=== PATIENT | male | born 1940 | race African-American/Black ===

== ENCOUNTER 2022-03-16 12:18 | Emergency (ER) | payer OTHER ==
[~2022-03-16] VITALS: Ht 182.9 cm; Wt 95.0 kg
[2022-03-16] MEDS ORDERED: SODIUM CHLORIDE 0.9% 1,000 ML IV ONE (12:30)
[2022-03-16 13:00] LABS: BASOPHILS % 0.6 % (0.0-2.0); EOSINOPHILS % 1.1 % (0.0-5.0); HEMATOCRIT. 37.8 % (42.0-52.0); HEMOGLOBIN. 12.8 g/dL (14.0-18.0); LYMPHOCYTES % 29.7 % (20.0-50.0); MEAN CORPUSCULAR HEMOGLOBIN 28.4 pg (28.0-32.0); MEAN CORPUSCULAR VOLUME 84.3 fL (80.0-94.0); MEAN PLATELET VOLUME 8.4 fl (7.4-10.4); MONOCYTES % 10.6 % (2.0-8.0); PLATELET 127 x1000/uL (130-400); RED BLOOD CELL COUNT 4.49 mill/uL (4.7-6.1); RED CELL DISTRIBUTION WIDTH 12.4 % (11.6-14.6)
[2022-03-16 13:15] LABS: CHLORIDE 107 mEq/L (98-107)
[2022-03-16 13:46] VITALS: BP 130/67
== END 2022-03-16 15:07 | disposition home or self-care (01) ==
LOC: ER 12:44
DX: R55 Syncope and collapse (principal); E86.0 Dehydration; N28.9 Disorder of kidney and ureter, unspecified; E78.00 Pure hypercholesterolemia, unspecified; I25.2 Old myocardial infarction; I10 Essential (primary) hypertension
CPT/HCPCS: 36415; 71045; 80053; 83690; 84484; 85025; 93005; 96360; 99285; J7030

== ENCOUNTER 2024-12-24 07:46 | Emergency (ER) | payer OTHER ==
[~2024-12-24] VITALS: Ht 180.3 cm; Wt 82.0 kg
[2024-12-24 07:47] VITALS: O2SAT 97
[2024-12-24 08:36] LABS: BASOPHILS % 0.8 % (0.0-2.0); EOSINOPHILS % 4.5 % (0.0-5.0); HEMATOCRIT. 43.1 % (42.0-52.0); HEMOGLOBIN. 14.2 g/dL (14.0-18.0); LYMPHOCYTES % 22.9 % (20.0-50.0); MEAN PLATELET VOLUME 7.6 fl (7.4-10.4); MONOCYTES % 7.2 % (2.0-8.0); NEUTROPHILS % 64.6 % (40.0-76.0); PLATELET 108 x1000/uL (130-400); RED BLOOD CELL COUNT 5.07 mill/uL (4.7-6.1); RED CELL DISTRIBUTION WIDTH 12.6 % (11.6-14.6)
[2024-12-24 08:48] LABS: CREATININE 2.2 mg/dL (0.6-1.3)
[2024-12-24 08:49] LABS: ETHANOL BLOOD < 10 mg/dL (<10); UREA NITROGEN BLOOD 13 mg/dL (9-23)
[2024-12-24] MEDS ORDERED: KEPP250 PO (11:33)
[2024-12-24 12:03] VITALS: BP 172/85; PULSE 68; RESP 12; TEMP 37; O2SAT 97
[2024-12-24] MEDS: LOSARTAN 50 MG TABLET PO ONE (12:06)
== END 2024-12-24 12:20 | disposition home or self-care (01) ==
LOC: ER 07:56 → CMPBEDREQ 12-25 07:38
DX: R56.9 Unspecified convulsions (principal); E78.00 Pure hypercholesterolemia, unspecified; I25.2 Old myocardial infarction; I10 Essential (primary) hypertension; K11.7 Disturbances of salivary secretion; Z79.899 Other long term (current) drug therapy
CPT/HCPCS: 36415; 80048; 80320; 85025; 93005; 99284; G0480

== ENCOUNTER 2025-03-05 16:37 | Emergency (ER) | payer OTHER ==
[~2025-03-05] VITALS: Ht 172.7 cm; Wt 86.0 kg
[~2025-03-05 16:37] MED LIST: KEPP250 PO
[2025-03-05 16:40] VITALS: O2SAT 98
[2025-03-05 18:10] LABS: BASOPHILS % 0.8 % (0.0-2.0); EOSINOPHILS % 3.5 % (0.0-5.0); HEMATOCRIT. 39.7 % (42.0-52.0); HEMOGLOBIN. 13.4 g/dL (14.0-18.0); LYMPHOCYTES % 23.2 % (20.0-50.0); MEAN PLATELET VOLUME 8.2 fl (7.4-10.4); MONOCYTES % 8.5 % (2.0-8.0); NEUTROPHILS % 64.0 % (40.0-76.0); PLATELET 108 x1000/uL (130-400); RED BLOOD CELL COUNT 4.72 mill/uL (4.7-6.1); RED CELL DISTRIBUTION WIDTH 12.5 % (11.6-14.6)
[2025-03-05 18:26] LABS: CREATININE 2.3 mg/dL (0.6-1.3); TROPONIN I HIGH SENSITIVITY 17 ng/L (3.0-53); UREA NITROGEN BLOOD 21 mg/dL (9-23)
[2025-03-05 18:28] LABS: ASPARTATE AMINOTRANSFERASE 14 IU/L (<34); BILIRUBIN DIRECT 0.3 mg/dL (<=3.0)
[2025-03-05 18:29] LABS: BILIRUBIN TOTAL 0.9 mg/dL (0.1-1.0); PROTEIN TOTAL 6.2 g/dL (6.0-8.3)
[2025-03-05 18:37] LABS: INR 1.0
[2025-03-05] MEDS: LEVETIRACETAM 500MG PREMIX 100 ML IV ONE (19:51)
[2025-03-05] MEDS: SODIUM CHLORIDE 0.9% 500 ML IV ONE (19:51)
[2025-03-05 21:22] LABS: TROPONIN I HIGH SENSITIVITY 17 ng/L (3.0-53)
[2025-03-05] MEDS ORDERED: ONDANSETRON HCL 4MG/2ML INJ IV PRN (21:30)
[2025-03-05] MEDS ORDERED: LORAZEPAM 2MG/ML UD SYRINGE IV PRN (21:30)
[2025-03-05] MEDS ORDERED: DEXTROSE 50% WATER 50ML SYRINGE IV PRN (21:30)
[2025-03-05] MEDS: CLONIDINE 0.1MG TABLET PO PRN (21:45)
[2025-03-05 21:51] VITALS: BP 176/65; PULSE 76; RESP 17; TEMP 36.9; O2SAT 99
[2025-03-06] MEDS ORDERED: INSULIN LISPRO 100 UNITS/ML SUBCUT SCH (08:20)
[2025-03-06] MEDS ORDERED: LEVETIRACETAM 500MG/5ML CUP PO SCH (09:00)
[2025-03-06] MEDS ORDERED: FOLIC ACID 1MG TABLET PO SCH (09:00)
[2025-03-06] MEDS ORDERED: ENOXAPARIN 30MG/0.3ML SYR SUBCUT SCH (09:00)
[2025-03-06] MEDS ORDERED: BLOOD SUGAR DIAGNOSTIC STRIP TEST SCH (09:00)
== END 2025-03-05 22:15 | disposition short-term general hospital (02) ==
LOC: ER 16:37 → CMPBEDREQ 03-06 07:32
DX: R55 Syncope and collapse (principal); E78.00 Pure hypercholesterolemia, unspecified; I10 Essential (primary) hypertension; R06.02 Shortness of breath; Z79.899 Other long term (current) drug therapy
CPT/HCPCS: 99285; 96365; 70450; 71045; 80076; 80048; 83880; 85025; 85610; 84484; 36415; 93005; J1953; J7040